=== PATIENT | male | born 1985 | race Caucasian/White ===

== ENCOUNTER 2020-03-05 20:44 | Emergency (ER) | payer MEDICAID ==
[~2020-03-05] VITALS: Ht 177.8 cm; Wt 90.0 kg
[2020-03-05 20:46] VITALS: BP 160/98
[2020-03-05] MEDS ORDERED: ACETAMINOPHEN 500MG TABLET PO NR (22:45)
== END 2020-03-06 00:15 | disposition home or self-care (01) ==
LOC: ER 20:44
DX: S06.0X0A Concussion without loss of consciousness, initial encounter (principal); Y00.XXXA Assault by blunt object, initial encounter; Y93.89 Activity, other specified; Y92.018 Other place in single-family (private) house as the place of occurrence of the external cause
CPT/HCPCS: 99284